=== PATIENT | female | born 1955 | race Caucasian/White ===

== ENCOUNTER → 2016-09-14 07:26 | Outpatient (CLI) | payer BC ==
[2010-11-17 08:55] VITALS: BMI 32.9
== END | disposition home or self-care (01) ==
LOC: D.RAD 07:26
DX: R13.10 Dysphagia, unspecified (principal)

== ENCOUNTER → 2016-09-28 12:27 | Outpatient (CLI) | payer BC ==
[2010-11-17 08:55] VITALS: BMI 32.9
== END | disposition home or self-care (01) ==
LOC: D.RAD 12:27
DX: R13.10 Dysphagia, unspecified (principal)

== ENCOUNTER 2016-10-19 16:47 | Outpatient (CLI) | payer BC ==
[2010-11-17 08:55] VITALS: BMI 32.9
== END 2016-10-19 17:24 ==
LOC: D.MAMMO 16:47
DX: Z12.31 Encounter for screening mammogram for malignant neoplasm of breast (principal)

== ENCOUNTER 2017-06-07 12:46 | Inpatient (IN) | payer BC ==
[~2017-06-07] VITALS: Ht 172.7 cm; Wt 87.7 kg
[2017-06-07 13:57] VITALS: BP 152/90; Ht 172.7 cm; Wt 87.7 kg
[2017-06-07] MEDS ORDERED: ASPIRIN325 MG PO (14:18)
[2017-06-07] MEDS ORDERED: VALIUM10 MG PO (14:19)
[2017-06-07] MEDS ORDERED: VITAMIN D250000 UNIT PO (14:20)
[2017-06-07] MEDS ORDERED: GLIPIZIDE10 MG PO (14:20)
[2017-06-07] MEDS ORDERED: FISH OIL 1,0001 CA1 PO (14:20)
[2017-06-07] MEDS ORDERED: OMEPRAZOLE20 M1 PO (14:21)
[2017-06-07] MEDS ORDERED: IBUPROFEN800 MG PO (14:21)
[2017-06-07] MEDS ORDERED: GLUCOPHAGE1000 MG PO (14:21)
[2017-06-07] MEDS ORDERED: ZOFRAN8 MG PO (14:22)
[2017-06-07] MEDS ORDERED: PROBIOTIC1 EAC1 PO (14:23)
[2017-06-07] MEDS ORDERED: LYRICA75 MG PO (14:23)
[2017-06-07] MEDS ORDERED: PRAVACHOL80 MG PO (14:23)
[2017-06-07] MEDS ORDERED: VICTOZA0.6 MG/0.1 SQ (14:25)
[2017-06-07] MEDS ORDERED: CALAN SR240 MG PO (14:25)
[2017-06-07] MEDS ORDERED: PROMETRIUM200 MG PO (14:25)
[2017-06-07] MEDS ORDERED: CLARITIN 10 MG10 MG PO (14:39)
[2017-06-07] MEDS ORDERED: FLECTOR1 PATCH TRANSDERM (14:41)
[2017-06-07 15:40] VITALS: BP 138/83
[2017-06-07 19:00] VITALS: BP 151/88
[2017-06-08 00:35] VITALS: BP 125/86
[2017-06-08 04:00] VITALS: BP 167/91
[2017-06-08 06:02] LABS: ANION GAP 13.5 mmol/L (8-16); CARBON DIOXIDE 21.6 mmol/L (21.0-32.0); CREATININE - SERUM 1.7 mg/dL (0.6-1.3); POTASSIUM - SERUM 3.1 mmol/L (3.5-5.1)
[2017-06-08 08:35] VITALS: BP 145/77
[2017-06-08 12:47] VITALS: BP 137/78
[2017-06-08 16:01] VITALS: BP 132/83
[2017-06-08 21:38] VITALS: BP 120/62
[2017-06-09 01:44] VITALS: BP 125/85
[2017-06-09 05:40] VITALS: BP 129/68
[2017-06-09 09:11] VITALS: BP 131/66
[2017-06-09 12:02] VITALS: BP 162/73
== END 2017-06-09 12:48 | disposition home or self-care (01) | DRG 684 ==
LOC: D.M2 12:46
PROVIDERS: Internal Medicine
DX: N17.9 Acute kidney failure, unspecified (principal); E11.22 Type 2 diabetes mellitus with diabetic chronic kidney disease; E86.0 Dehydration; I12.9 Hypertensive chronic kidney disease with stage 1 through stage 4 chronic kidney disease, or unspecified chronic kidney disease; N18.3 Chronic kidney disease, stage 3 (moderate); K21.9 Gastro-esophageal reflux disease without esophagitis; Z87.891 Personal history of nicotine dependence; Z86.73 Personal history of transient ischemic attack (TIA), and cerebral infarction without residual deficits

== ENCOUNTER → 2017-06-19 11:49 | Outpatient (CLI) | payer BC ==
[~2017-06-19 11:49] MED LIST: ASPIRIN325 MG PO; CALAN SR240 MG PO; CLARITIN 10 MG10 MG PO; FISH OIL 1,0001 CA1 PO; FLECTOR1 PATCH TRANSDERM; GLIPIZIDE10 MG PO; GLUCOPHAGE1000 MG PO; IBUPROFEN800 MG PO; LYRICA75 MG PO; OMEPRAZOLE20 M1 PO; PRAVACHOL80 MG PO; PROBIOTIC1 EAC1 PO; PROMETRIUM200 MG PO; VALIUM10 MG PO; VICTOZA0.6 MG/0.1 SQ; VITAMIN D250000 UNIT PO; ZOFRAN8 MG PO
== END | disposition home or self-care (01) ==
LOC: D.US 11:49
DX: R41.3 Other amnesia (principal); R51 Headache; R07.9 Chest pain, unspecified

== ENCOUNTER 2017-08-07 11:33 | Outpatient (CLI) | payer BC ==
[~2017-08-07] VITALS: Ht 167.6 cm; Wt 88.2 kg
--- NOTE | ~2017-08-07 | HEMODYNAMI ---
PATIENT:ERLIN MARTINEZ MEDICAL RECORD: [id number] : 59 LOCATION:DOTIS ADMISSION DATE: 08/07/17 Generatedon:08/07/201714:59 Patient name: ERLIN MARTINEZ Patient #: [id number] SSN: : Date of study: 08/07/2017 Page: Of Hemodynamic Procedure Report Patient Data Patient Demographics Procedure consent was obtained First Name: ERLIN Gender: Female Last Name: JUAN : 1955 [facility] Initial: SAW Age: 62 year(s) Patient #: [id number] Race: Unknown Additional ID: [id number] Contact details Address: [place] [address] State: [place] City: [place] Zip code: [address] Past Medical History Allergies Allergen Reaction Date Comments Reported Other allergy 08/07/2017 Morphine, PCN Admission Admission Data Admission Date: 08/07/2017 Admission Time: 11:33 Procedure Procedure Types Cath Procedure Diagnostic Procedure LHC LHC w/Coronaries Procedure Description Procedure Date Procedure Date: 08/07/2017 Procedure Start Time: 14:44 Procedure End Time: 14:54 Procedure Staff Name Function Arthur Banegas MD Performing Physician Toño Clancy RT Monitor Robert Armenta RT Scrub Humberto Rowan RN Nurse Procedure Data Cath Procedure Fluoroscopy Diagnostic fluoroscopy Total fluoroscopy Time: 2.8 time: 2.8 min min Diagnostic fluoroscopy Total fluoroscopy dose: 256 dose: 256 mGy mGy Contrast Material Contrast Material Type Amount (ml) Isovue 300 44 Entry Location Entry Primary Successful Side Size Upsize Upsize Entry Closure Vargas ccessful Closure Location (Fr) 1 (Fr) 2 (Fr) Remarks Device Remarks Radial Right 6 Fr Mechanical artery Short Compression Estimated blood loss: 10 ml Diagnostic catheters Device Type Used For End Catheter Placement DIAGNOSTIC [place] 110cm 5 Procedure Fr catheter ([id number]) Procedure Complications No complications Procedure Medications Medication Administration Route Dosage Oxygen NC 2 l/min Heparin Flush Bag added to field 2 bags (1000units/500ml NS) Lidocaine 2% added to field 20 0.9% NaCl I.V. 100 ml/hr Versed I.V. 2 mg Fentanyl I.V. 100 mcg Radial Cocktail I.A. 1 syringe (Verapomil 2mg/Nitro 400mcg/Heparin 1500units) Versed I.V. 1 mg Fentanyl I.V. 50 mcg Versed I.V. 1 mg Fentanyl I.V. 50 mcg Versed I.V. 1 mg Fentanyl I.V. 50 mcg Hemodynamics Rest Heart Rate: 65 (bpm) Pressure Samples Time Site Value (mmHg) Purpose Heart Use Rate(bpm) 14:50 LV 90/7,9 Snapshot 76 Gradients Valve Time Site Site Mean SEP/DFP Peak To Heart Use 1 2 (mmHg) (sec/min) Peak Rate (mmHg) (bpm) Aortic 14:50 LV AO 83 Snapshots Pre Cath Intra NCS Post Cath Vital Signs Time Heart Resp SPO2 etCO2 NIBP Rhythm Pain Sedation Rate (ipm) (%) (mmHg) (mmHg) Status Level (bpm) 14:34:18 81 17 98 0 130/69(96) NSR 0 (11) 10(A) , No pain 14:39:02 70 10 94 24 109/69(81) NSR 0 (11) 10(A) , No pain 14:43:45 68 11 97 28.5 110/60(89) NSR 0 (11) 10(A) , No pain 14:48:29 81 16 96 0 100/49(67) NSR 0 (11) 9(A) , No pain 14:53:49 73 15 95 0 117/58(89) NSR 0 (11) 10(A) , No pain Medications Time Medication Route Dose Verified Delivered Reason Notes Effectiveness by by 14:38:44 Oxygen NC 2 l/min Arthur Paul used for St Ren Rowan RN procedure 14:39:03 Heparin Flush added 2 bags Arthur Gibson used for Bag to [facility] procedure (1000units/500ml field MD JUAN NS) 14:39:23 Lidocaine 2% added 20ml Arthur Gibson for local to vial [facility] anesthetic field MD JUAN 14:39:31 0.9% NaCl I.V. 100 Arthur Foremanie Per ml/hr St Ren Rowan RN physician 14:39:42 Versed I.V. 2 mg Arthur Buffie for sedation St Ren Rowan RN, MD 14:39:47 Fentanyl I.V. 100 mcg Arthur Paul for sedation St Ren Rowan RN, MD 14:45:31 Versed I.V. 1 mg Arthur Foremanie for sedation St Ren Rowan RN, MD 14:45:35 Fentanyl I.V. 50 mcg Arthur Paul for sedation St Ren Rowan RN, MD 14:46:25 Radial Cocktail I.A. 1 Arthur Gibson for (Verapomil syringe BassamRen Banegas vasodilation 2mg/Nitro MD JUAN 400mcg/Heparin 1500units) 14:49:44 Versed I.V. 1 mg Arthur Paul for sedation St Ren Rowan RN, MD 14:49:51 Fentanyl I.V. 50 mcg Arthur Paul for sedation St Ren Rowan RN, MD 14:53:22 Versed I.V. 1 mg Arthur Foremanie for sedation St Ren Rowan RN, MD 14:53:26 Fentanyl I.V. 50 mcg Arthur Paul for sedation St Ren Rowan RN, MD Procedure Log Time Note 13:50:06 Humberto Rowan RN sent for patient. Start room use. 13:58:53 Time tracking: Regular hours 13:58:57 Plan of Care:Hemodynamics will remain stable., Cardiac rhythm will remain stable., Comfort level will be maintained., Respiratory function will remain adequate., Patient/ family verbilizes understanding of procedure., Procedure tolerated without complication., Recovers from procedure without complications.. 14:24:49 Patient received from Pre/Post Procedure Room to [facility] 1 Alert and oriented. Tansferred to table in Supine position. 14:24:51 Warm blankets applied, and birdie hugger turned on for patient comfort. 14:24:51 Correct patient and procedure confirmed by team. 14:24:53 Signed procedure consent form obtained from patient. 14:24:54 ECG and BP/O2 sat monitors applied to patient. 14:25:39 H&P Date Dictated: 08/07/2017 New H&P dictated by physician.. 14:25:42 Pre-procedure instructions explained to patient. 14:25:43 Pre-op teaching completed and patient verbalized understanding. 14:25:45 Family in waiting room. 14:25:46 Patient NPO since Midnight. 14:26:05 Patient allergic to Other allergyMorphine, PCN 14:26:07 Is the patient allergic to Iodine/contrast media? No. 14:26:11 Is patient on blood thinner?No 14:33:18 Vital chart was started 14:36:28 Baseline sample Acquired. 14:36:31 Rhythm: sinus rhythm 14:36:32 Full Disclosure recording started 14:36:38 Patient diabetic? Yes. 14:36:39 If diabetic: On Metformin? No 14:36:41 Previous problem with sedation/anesthesia? No ? 14:36:42 Snore? Yes 14:36:44 Sleep apnea? No 14:36:45 Deviated septum? No 14:36:46 Opens mouth fully? Yes 14:36:47 Sticks out tongue? Yes 14:36:48 Airway obstruction? No ? 14:36:50 Dentures? No ? 14:36:53 Pre procedure: right dorsailis pedis pulse 1+ Palpable, but thready & weak; easily obliterated 14:38:31 Patient pain scale 0/10 ?. 14:38:35 IV patent on arrival in left forearm with 0.9% NaCl at O. 14:38:38 Lab results completed and on chart. 14:38:41 Right Radial & Right Groin area was prepped with chlora-prep and draped in sterile fashion 14:38:42 Alarms reviewed by R. N. 14:38:43 Sharps counted by scrub and verified by R.N. 14:38:44 Oxygen 2 l/min NC was administered by Humberto Rowan RN; used for procedure; 14:38:45 --------ALL STOP TIME OUT------ 14:38:45 Final Timeout: patient, procedure, and site verified with staff and physician. All members of the team are in agreement. 14:38:47 Right Radial & Right Groin site verified by team. 14:38:50 Physical assessment completed. ASA score P 2 - A patient with mild systemic disease as per Arthur Banegas MD. 14:38:53 Sedation plan: IV Moderate Sedation Medication:Versed, Fentanyl 14:39:03 Heparin Flush Bag (1000units/500ml NS) 2 bags added to field was administered by Arthur Banegas MD; used for procedure; 14:39:23 Lidocaine 2% 20ml vial added to field was administered by Arthur Banegas MD; for local anesthetic; 14:39:31 0.9% NaCl 100 ml/hr I.V. was administered by Humberto Rowan RN; Per physician; 14:39:42 Versed 2 mg I.V. was administered by Humberto Rowan RN; for sedation; 14:39:47 Fentanyl 100 mcg I.V. was administered by Humberto Rowan RN; for sedation; 14:43:00 Use device set Radial Dx or PCI 14:43:05 ACIST Manifold (19992) opened to sterile field. 14:43:07 ACIST Hand Control (02975) opened to sterile field. 14:43:07 Tegaderm 4 x 4 (1626W) opened to sterile field. 14:43:08 ACIST Syringe (18419) opened to sterile field. 14:43:09 Medline Cath Pack ([id number]) opened to sterile field. 14:43:09 Bag Decanter (2002S) opened to sterile field. 14:43:13 DIAGNOSTIC WIRE .035 260cm J wire (279844) opened to sterile field. 14:43:13 MBrace Wrist Support ([id number]) opened to sterile field. 14:43:39 SHEATH 6Fr Prelude Radial ([id number]) opened to sterile field. 14:44:50 Procedure started. 14:44:55 Local anesthetic to right radial artery with Lidocaine 2% by Arthur Banegas MD.INITIAL ACCESS ONLY 14:45:20 A 6 Fr Short sheath was inserted into the Right Radial artery 14:45:31 Versed 1 mg I.V. was administered by Humberto Rowan RN; for sedation; 14:45:35 Fentanyl 50 mcg I.V. was administered by Humberto Rowan RN; for sedation; 14:45:42 A DIAGNOSTIC [place] 110cm 5 Fr catheter (994734) was advanced over the wire and used for Procedure. 14:46:25 Radial Cocktail (Verapomil 2mg/Nitro 400mcg/Heparin 1500units) 1 syringe I.A. was administered by Arthur Banegas MD; for vasodilation; 14:47:32 GLIDE WIRE ANGLE 260cm (HF0439) opened to sterile field. 14:48:28 [place] wire used to advance catheter. 14:49:20 Glidewire removed. 14:49:44 Versed 1 mg I.V. was administered by Buffie Rowan RN; for sedation; 14:49:51 Fentanyl 50 mcg I.V. was administered by Humberto Rowan RN; for sedation; 14:49:52 LCA angiography performed. 14:50:41 LV angiography performed. 14:50:50 LV gram done using LONOGRIA 14:50:56 EF : 55 % 14:50:59 LV hemodynamics recorded. 14:51:03 Injector settings: Ml/sec: 7, Volume: 15, 14:51:17 RCA angiography performed. 14:51:36 Catheter removed. 14:51:39 TR BAND Standard ([id number]) opened to sterile field. 14:52:13 Sheath removed intact; hemostasis achieved with Mechanical Compression to the Right Radial artery. 14:52:16 Procedure ended.(Physican Out) 14:53:07 Fluoroscopy time 02.80 minutes. 14:53:11 Fluoroscopy dose: 256 mGy 14:53:11 Flurop Dose total: 256 14:53:14 Contrast amount:Isovue 300 44ml. 14:53:16 Sharps counted by scrub and verified by R.N. 14:53:18 TR band inflated with 12cc of air. 14:53:19 Insertion/operative site no bleeding no hematoma. 14:53:21 Post Procedure Pulses reassessed and unchanged 14:53:22 Versed 1 mg I.V. was administered by Humberto Rowan RN; for sedation; 14:53:26 Fentanyl 50 mcg I.V. was administered by Humberto Rowan RN; for sedation; 14:53:30 Post-procedure physical assessment completed. ASA score P 2 - A patient with mild systemic disease as per Arthur Banegas MD. 14:53:32 Post procedure rhythm: unchanged. 14:53:35 Estimated blood loss: 10 ml 14:53:37 Post procedure instruction explained to patient.Patient verbalizes understanding. 14:53:37 Patient needs reinforcement of post procedure teaching. 14:53:52 Procedure and supply charges have been captured, reviewed, submitted and are correct. 14:53:54 Procedure Complication : No complications 14:54:10 Vital chart was stopped 14:54:11 See physician's report for complete and final results. 14:54:17 Report given to Pre/Post Procedure Room. 14:54:20 Patient transfered to Pre/Post Procedure Room with Stretcher. 14:54:23 Procedure ended. 14:54:23 Full Disclosure recording stopped 14:58:45 End room use (Document Last) Device Usage Item Name Manufacture Quantity Catalog Number Hospital Part Current M inimal Lot# / Charge Number Stock Stock Serial# Code ACIST Manifold Acist 1 14206 812300 454050 [id number] 5 (17500) [employer] Inc ACIST Hand Acist 1 95929 434822 329088 261429 5 Control (64112) [employer] Inc Tegaderm 4 x 4 3M 1 1626W 916944 612728 194211 5 (1626W) ACIST Syringe Acist 1 03414 448955 356588 153361 2 0 (52980) Medical Systems Inc Medline Cath Cardinal 1 [id number] 996103 47292 226778 5 Pack Health ([id number]) Bag Decanter Microtek 1 2001S 586992 30040 232352 5 (2001S) Medical Inc. DIAGNOSTIC WIRE St [place] 1 887438 756123 869255 464829 3 0 .035 260cm J wire (714913) MBrace Wrist Advanced 1 140-0250-00 612407 92535 918955 5 Support Vascular ([id number]) Dynamics SHEATH 6Fr Merit 1 [id number] 426320 580850 890820 5 Prelude Radial Medical ([id number]) DIAGNOSTIC Terumo 1 40-4684 748647 023676 252451 5 [place] 110cm 5 Fr catheter (554907) GLIDE WIRE Terumo 1 SH3047 658595 473528 460747 5 ANGLE 260cm (HO3443) TR BAND Terumo 1 [id number] 138234 752450 464771 4 0 Standard ([id number]) Signature Audit [place] Stage Time Signature Unsigned Intra-Procedure 08/07/2017 Toño Clancy 2:59:09 PM RT(R) Signatures Monitor : Toño Clancy RT Signature : Date : Time : [facility] [address] [facility] [place] [address]
--- NOTE | ~2017-08-07 | OP ---
PATIENT NAME: ERLIN MARTINEZ MEDICAL RECORD: [id number] :59 LOCATION:D.CAT ADMISSION DATE: SURGEON: PRITI TAYLOR MD DATE OF OPERATION: 08/07/2017 PROCEDURE: Left heart catheterization, selective coronary angiography, right radial artery approach. CATHETERS: A 5-[place] radial sheath, [employer] catheter. The procedure was well tolerated. The patient was returned to the cam. Sheath removed. TR band was placed. FINDINGS: Left ventriculography in 30-degree [place] view: Normal wall motion, normal systolic function. CORONARY ANATOMY: LEFT MAIN: Left main is free of disease. LAD: Free of disease in the diagonal system. CIRCUMFLEX: Free of disease in the marginal system. RIGHT CORONARY ARTERY: Dominant artery, gives rise to PDA, free of disease. IMPRESSION: Normal systolic function, normal coronary anatomy. TRANSINT:[id number] Voice Confirmation ID: [id number] DOCUMENT ID: [id number] 08/18/2017 Edited to correct date of operation, dmm. PRITI TAYLOR MD at 1132 CC: [id number] DICTATION DATE: 08/16/17 1309 CERTIFIED DIALYSIS TECHNICIAN: 08/16/17 1432 DEP CLI 08/07/17 [id number] [place] [address]
--- NOTE | ~2017-08-07 | HP ---
PATIENT: ERLIN MARTINEZ MEDICAL RECORD: [id number] ACCOUNT: [id number] LOCATION:DANNY : 59 ADMISSION DATE: 08/07/17 HISTORY AND PHYSICAL EXAMINATION HISTORY OF PRESENT ILLNESS: This is a 62-year-old female initially seen in the office with angina, underwent Cardiolite stress testing, which showed reversible ischemia. She is being admitted for diagnostic angiography. PAST MEDICAL HISTORY: Includes; 1. History of diabetes. 2. Hypertension. 3. Hyperlipidemia. MEDICATIONS: Include aspirin 81 every day, valium 10 mg 1 p.o. b.i.d. p.r.n., glipizide 10 every day, Jardiance 10 p.o. daily, and losartan HCT 100/25 every day. PHYSICAL EXAMINATION: GENERAL: Pleasant gentleman, in no acute distress, appears stated age. HEENT: Normocephalic, atraumatic. NECK: No bruits noted. HEART: Regular. LUNGS: Judd clear. ABDOMEN: Soft, nontender. EXTREMITIES: Pulse 2+ with no edema. IMPRESSION: Angina with abnormal nuclear stress testing. PLAN: Plan for diagnostic angiography and intervention based on above. TRANSINT:[id number] Voice Confirmation ID: [id number] DOCUMENT ID: [id number] PRITI TAYLOR MD at 1310 CC: [id number] DICTATION DATE: 08/07/17 1340 COMMERCIAL CONSTRUCTION SUPERINTENDENT: 08/07/17 1431 [facility] CLI 08/07/17 [place] [address]
[2017-08-07 12:02] VITALS: BP 136/68; Ht 167.6 cm; Wt 88.2 kg
[2017-08-07] MEDS ORDERED: HYZAAR 100-25 T1 TAB PO (12:12)
[2017-08-07] MEDS ORDERED: SYNJARDY PO (12:13)
[2017-08-07 12:19] LABS: HEMATOCRIT 38.3 % (36.0-48.0); HEMOGLOBIN 13.2 g/dL (12-16); LYMPHOCYTES 29.8 % (15-50); MCH 30.1 pg (26.0-34.0); MCHC 34.5 g/dL (31.0-37.0); MCV 87.4 fL (80.0-100.0); MEAN PLATELET VOLUME 9.4 fL (7.4-10.4); NEUTROPHILS 62.6 % (40-80); PLATELET COUNT 233 10x3/uL (130-400); RBC 4.38 10x6/uL (4.00-5.40); RDW 14.7 % (11.5-14.5); WBC 6.2 10x3/uL (4.8-10.8)
[2017-08-07 12:20] LABS: ANION GAP 16.2 mmol/L (8-16); CALCIUM 9.6 mg/dL (8.5-10.1); CARBON DIOXIDE 24.3 mmol/L (21.0-32.0); CREATININE - SERUM 1.1 mg/dL (0.6-1.3); POTASSIUM - SERUM 3.5 mmol/L (3.5-5.1)
== END 2017-08-07 17:15 | disposition home or self-care (01) ==
LOC: D.CATH 11:33
PROVIDERS: Internal Medicine Interventional Cardiology
DX: I20.9 Angina pectoris, unspecified (principal); R94.30 Abnormal result of cardiovascular function study, unspecified; Z01.812 Encounter for preprocedural laboratory examination

== ENCOUNTER 2017-08-14 22:25 | Inpatient (IN) | payer BC ==
[~2017-08-14] VITALS: Ht 167.6 cm; Wt 86.4 kg
--- NOTE | ~2017-08-14 | HP ---
PATIENT: ERLIN WOODWARD MEDICAL RECORD: [id number] ACCOUNT: [id number] LOCATION:D. D.2140 : 59 ADMISSION DATE: 08/15/17 HISTORY AND PHYSICAL EXAMINATION ADMITTING DIAGNOSES: 1. Radial artery occlusion post-cardiac catheterization. 2. Hypertension. 3. Hyperlipidemia. 4. Noninsulin-dependent diabetes. HISTORY OF PRESENT ILLNESS: Ms. Woodward presents with pain around her right radial site and going up her arm in a worsening fashion. She underwent cardiac catheterization last week with no intervention. She is only on aspirin. Ultrasound showed occlusion of the radial artery, good flow through the ulnar. She was placed on heparin overnight. Her pain is markedly better. She still does not have a radial pulse. PHYSICAL EXAMINATION: GENERAL APPEARANCE: Well-nourished, well-developed, appears stated age. Level of distress, comfortable. PSYCHIATRIC: Mental status, alert, normal affect. Orientation, oriented to time, place and person. EYES: Lids and conjunctiva, noninjected. No discharge, no pallor. ENT: Lips, teeth, gums, normal dentition. Oropharynx, no cyanosis, no pallor. NECK: Carotid arteries, bilateral normal upstroke, no bruits, no thrills. JUGULAR VEINS: No jugular venous pressure or distention. CERVICAL LYMPH NODES: Nontender, nonenlarged. THYROID: Not enlarged. Nontender. No nodules. LUNGS: Respiratory effort, unlabored. CHEST: Normal curvature. No thoracic deformity. No chest wall tenderness. Percussion, resonant. Auscultation, clear. No wheezes, no rales, no rhonchi. CARDIOVASCULAR: Precordial exam, nondisplaced. No heaves or pericardial thrills. Rate and rhythm, regular. Heart sounds, normal S1, normal S2. No S3, no gallop, no rub. Systolic murmur, not heard. Diastolic murmur, not heard. EXTREMITIES: No cyanosis, no edema. Peripheral pulses, full and equal in all extremities, except as noted. No bruits appreciated. ABDOMEN: Soft, nondistended. Normal aorta. No bruit. Nontender. No masses. Liver, nontender, no hepatomegaly. Spleen, nontender, no splenomegaly. MUSCULOSKELETAL: No joint tenderness. No joint swelling. No erythema. NEUROLOGICAL: Normal gait, normal strength, normal tone. SKIN: Warm and dry. OVERALL IMPRESSION: Radial artery occlusion. At this time, we will place her on anticoagulant in the form of Pradaxa 150 b.i.d., continuing the aspirin. We will see her back in 2 weeks, reevaluate in 2-4 weeks with a repeat ultrasound. TRANSINT:[id number] Voice Confirmation ID: [id number] DOCUMENT ID: [id number] HISTORY AND PHYSICAL [id number] ERLIN WOODWARD, TREMAINE JUAN at 0956 CC: [id number] DICTATION DATE: 08/15/17 1138 GENETIC ENGINEER: 08/15/17 1216 DIS IN 08/15/17 [facility] [address] [place] [address]
--- NOTE | ~2017-08-14 | DS ---
PATIENT:ERLIN WOODWARD :59 MEDICAL RECORD: [id number] DISCHARGE SUMMARY ADMISSION DATE: 08/15/17 DISCHARGE DATE: 08/15/17 REASON FOR ADMISSION: Acute radial artery occlusion after cardiac catheterization. HISTORY AND HOSPITAL COURSE: Ms. Woodward presented with acute pain in the radial area, found to have occlusion of the radial artery by ultrasound. Placed on IV heparin. She had marked improvement in her symptomatology. No threatening limb ischemia due to a good ulnar distribution. She was placed on Pradaxa. We will see her back in 2 weeks. TRANSINT:[id number] Voice Confirmation ID: [id number] DOCUMENT ID: [id number] TREMAINE PAZ MD at 0956 CC: [id number] DICTATION DATE: 08/15/17 1138 BUNDLE WRAPPER: 08/16/17 0823 DIS IN 08/15/17 [address] [place] [address]
[~2017-08-14 22:25] MED LIST changes: +HYZAAR 100-25 T1 TAB PO; +SYNJARDY PO
[2017-08-14 23:57] LABS: HEMATOCRIT 36.2 % (36.0-48.0); HEMOGLOBIN 12.5 g/dL (12-16); LYMPHOCYTES 35.4 % (15-50); MCH 29.8 pg (26.0-34.0); MCHC 34.5 g/dL (31.0-37.0); MCV 86.2 fL (80.0-100.0); MEAN PLATELET VOLUME 9.6 fL (7.4-10.4); NEUTROPHILS 51.4 % (40-80); PLATELET COUNT 239 10x3/uL (130-400); RDW 14.7 % (11.5-14.5); WBC 6.7 10x3/uL (4.8-10.8)
[2017-08-15 00:09] LABS: ALBUMIN 3.5 g/dL (3.4-5.0); ANION GAP 15.1 mmol/L (8-16); BILIRUBIN - TOTAL 0.86 mg/dL (0.2-1.3); CALCIUM 8.9 mg/dL (8.5-10.1); CARBON DIOXIDE 26.8 mmol/L (21.0-32.0); CREATININE - SERUM 1.1 mg/dL (0.6-1.3); PROTEIN - SERUM 7.1 g/dL (6.4-8.2)
[2017-08-15 00:14] LABS: POTASSIUM - SERUM 2.9 mmol/L (3.5-5.1)
[2017-08-15 03:37] LABS: APTT 26.8 SECONDS (22.8-39.4); INR 0.97 (0.85-1.17); PROTIME 12.5 SECONDS (11.6-15.0)
[2017-08-15 07:25] VITALS: Ht 167.6 cm; Wt 86.4 kg
[2017-08-15 08:07] VITALS: BP 130/68
[2017-08-15] MEDS ORDERED: PRADAXA150 MG PO (10:47)
== END 2017-08-15 12:33 | disposition home or self-care (01) | DRG 301 ==
LOC: D.ER 22:25 → D.EDHOLD 08-15 04:28 → D.M2 08-15 04:28
PROVIDERS: Family Medicine
DX: I77.89 Other specified disorders of arteries and arterioles (principal); E78.5 Hyperlipidemia, unspecified; I10 Essential (primary) hypertension; E11.9 Type 2 diabetes mellitus without complications

== ENCOUNTER → 2017-10-05 17:41 | Outpatient (CLI) | payer BC ==
[2017-08-15 07:25] VITALS: BMI 30.7
[~2017-10-05 17:41] MED LIST changes: +PRADAXA150 MG PO
== END | disposition home or self-care (01) ==
LOC: D.MAMMO 13:15
DX: Z12.31 Encounter for screening mammogram for malignant neoplasm of breast (principal)

== ENCOUNTER 2017-11-06 08:00 | Outpatient (CLI) | payer BC ==
[2017-08-15 07:25] VITALS: BMI 30.7
== END 2017-11-06 09:00 | disposition home or self-care (01) ==
LOC: D.MAMMO 08:00
DX: R92.8 Other abnormal and inconclusive findings on diagnostic imaging of breast (principal)

== ENCOUNTER 2018-10-12 08:00 | Outpatient (CLI) | payer BC ==
[2017-08-15 07:25] VITALS: BMI 30.7
== END 2018-10-12 23:59 | disposition home or self-care (01) ==
LOC: D.MAMMO 08:00
PROVIDERS: ATTEND Family Medicine
DX: Z12.31 Encounter for screening mammogram for malignant neoplasm of breast (principal)

== ENCOUNTER 2020-01-31 13:00 | Outpatient (CLI) | payer BC ==
[2017-08-15 07:25] VITALS: BMI 30.7
== END 2020-01-31 13:15 | disposition home or self-care (01) ==
LOC: D.MAMMO 13:00
PROVIDERS: ATTEND Nurse Practitioner Family
DX: Z12.31 Encounter for screening mammogram for malignant neoplasm of breast (principal)